=== PATIENT | male | born 1935 | race Caucasian/White ===

== ENCOUNTER → 2020-01-07 | Outpatient (CLI) | payer OTHER ==
[~2020-01-07] MED LIST: AMLODIPINE BESY10 MG PO; ASA81BEC PO; CARVEDILOL25 MG PO; FLOMAX0.4 MG PO; HUMULIN 70100 UNIT/2 SUBQ; INVOKANA100 MG PO; KLOR-CON 10 ER10 MEQ PO; LIPITOR40 MG PO; MYRBETRIQ25 MG PO; RAYOS5 MG PO; TORSEMIDE20 MG PO; ZESTRIL40 MG PO
== END ==
LOC: SJCVC 12:04
PROVIDERS: ATTEND Internal Medicine Cardiovascular Disease
DX: R94.31 Abnormal electrocardiogram [ECG] [EKG] (principal); I44.7 Left bundle-branch block, unspecified; E11.51 Type 2 diabetes mellitus with diabetic peripheral angiopathy without gangrene; I50.23 Acute on chronic systolic (congestive) heart failure; I25.10 Atherosclerotic heart disease of native coronary artery without angina pectoris; I42.9 Cardiomyopathy, unspecified; E78.5 Hyperlipidemia, unspecified; R93.1 Abnormal findings on diagnostic imaging of heart and coronary circulation; R53.83 Other fatigue; R06.02 Shortness of breath; R60.9 Edema, unspecified; R60.0 Localized edema; Z79.4 Long term (current) use of insulin

== ENCOUNTER → 2020-01-13 | Outpatient (CLI) | payer OTHER ==
[~2020-01-13] VITALS: Ht 167.6 cm; Wt 98.9 kg
[2020-01-13 07:50] LABS: HEMATOCRIT 46.8 % (42.0-52.0); HEMOGLOBIN 15.8 gm/dL (14.0-18.0); MCHC 33.8 g/dL (28.0-37.0); MCV 91.7 fL (80.0-100.0); RBC 5.1 mil/uL (4.50-6.00); WBC 10.8 thou/uL (4.0-11.0)
[2020-01-13 08:02] VITALS: BP 122/52
[2020-01-13 08:02] LABS: CALCIUM 8.9 mg/dL (8.5-10.1); CREATININE 1.3 mg/dL (0.7-1.3)
--- NOTE | 2020-01-13 14:16 | NUR ---
pt voiding per urinal but also incontinent. [facility]
--- NOTE | 2020-01-13 15:46 | EKG ---
[facility] [address] ELECTROCARDIOGRAM REPORT Name: PK SOLARES Room #: REG [facility]#: [id number] Admission: 01/13/20 Attend Phys: Vasquez Chandler MD Discharge: Date of : 39 Report #: [id number] THIS REPORT FOR: cc: Kwesi Christie James L. DO Couchonnal, Luis F. 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
--- NOTE | 2020-01-14 16:32 | CATHLAB ---
[facility] [place] [address] INVASIVE PROCEDURE REPORT Name: PK SOLARES Room #: REG NANCY [facility]an[facility]#: [id number] Admission: 01/13/20 Attend Phys: aVsquez Chandler MD Discharge: Date of : 39 Report #: [id number] THIS REPORT FOR: cc: Kwesi Christie James L. DO Mancuso, Gerald M. MD [facility] ~ APPROVED REPORT Study performed: 01/13/2020 11:25:06 Patient Details Patient Status: Out-Patient Room #: The patient is a 84 year-old male Event Personnel Hima Manzanares Precision Lathe Operator, Mariza Mcfarlane RTR, SUPERVISOR BENZENE REFINING Monitor, Syeda Mcdonald RN, Raquel Gonzales Scrvalarie Procedures Performed Right and Left Heart Cath w/or w/o Coronarie [id number] RLHC Hemostasis w/ Mynx Hemostasis with Manual pressure 03959 Initial Mod Sed Same Phys/QHP Gr5y 742854 43037 Mod Sed Same Phys/QHP Ea 992052 Indication Dyspnea, Positive stress test Procedure Narrative The was infiltrated with 1% Lidocaine subcutaneous anesthesia. A 6F 23CM BRITE TIP sheath was inserted into the RFA. Coronary angiography was performed using coronary diagnostic catheters. The right coronary system was accessed and visualized with a JR4 catheter. The left coronary system was accessed and visualized with a JL4 catheter. The left ventricle was accessed and visualized with a PIGTAIL catheter. Left ventricular/Aortic Valve gradient assessed via catheter pullback. Left ventriculogram was performed in 30 degree projection. Closure device was deployed with a 6 Fr MYNXGRIP 6/7F #[id number]. Hemostasis was obtained with manual pressure following sheath removal without any complications. The patient tolerated the procedure well and there were no complications associated with the procedure. There was no hematoma. Intraoperative Conscious Sedation Sedation start time: 12:01 Case end Time: [facility] [place] [address] [place] [address] INVASIVE PROCEDURE REPORT Name: PK SOLARES Room #: [facility] Chay#: [id number] Admission: 01/13/20 Attend Phys: Vasquez Chandler, Discharge: Date of : 39 Report #: [id number] 12:47 Fentanyl 50 mcg Versed 1 mg Fluoro Time: 3.25 minutes Dose: DAP 5746.50 cGycm2 593 mGy Contrast Type and Amount: Visipaque 110 ml Hemodynamics The right atrial mean pressure is 13 mmHg. The right ventricular pressure is 55/8 mmHg. The pulmonary artery pressure is 50/21 mmHg with a mean of 33 mmHg. The mean pulmonary capillary wedge pressure is 23 mmHg. The aortic pressure is 136/56 mmHg with a mean of 88 mmHg. The left ventricular pressure is 142/15 mmHg with a mean of mmHg. The left ventricular end diastolic pressure is 21 mmHg. The cardiac output using thermo method is 4.30 L/min. The cardiac index using thermo method is 2.07 L/min/m2. Conclusion 1. Successful right heart catheterization with cardiac output by thermodilution. See above hemodynamics. #2 left main with mild ostial disease of 20% giving rise to LAD and circumflex. #3 LAD with proximal calcification mild to moderate diffuse disease no occlusive disease #4 circumflex OM with an ostial lesion of 60 to 70% filling a proximal OM branch with mild disease second OM branch with an eccentric 70 to 75% lesion filling a moderate size OM will treat this medically for now. #4 dominant right coronary artery with an eccentric 30 to 40% lesion mid vessel lesion of 50 to 60% calcified giving rise to PDA DILEEP. Tortuous system. Not occlusive. #5 normal left ventricular size and LV function lower limits of normal EF 50% range. Recommendations and plan: Continue aggressive risk factor modification. Diuresis indicated. We will closely follow this moderately diseased coronary system. <ELECTRONICALLY SIGNED> By: Hima Manzanares MD, FACC 01/14/20 163 163 30 Hima Manzanares MD, FACC /INF
== END | disposition home or self-care (01) ==
LOC: CATH 06:35
PROVIDERS: ATTEND Nuclear Medicine Nuclear Cardiology
DX: R94.39 Abnormal result of other cardiovascular function study (principal); I25.10 Atherosclerotic heart disease of native coronary artery without angina pectoris; I70.213 Atherosclerosis of native arteries of extremities with intermittent claudication, bilateral legs; I70.1 Atherosclerosis of renal artery; K55.1 Chronic vascular disorders of intestine; I15.0 Renovascular hypertension; I11.0 Hypertensive heart disease with heart failure; I50.9 Heart failure, unspecified; I42.9 Cardiomyopathy, unspecified; E11.9 Type 2 diabetes mellitus without complications; E78.5 Hyperlipidemia, unspecified; N40.0 Benign prostatic hyperplasia without lower urinary tract symptoms; Z98.890 Other specified postprocedural states; Z79.4 Long term (current) use of insulin; Z79.899 Other long term (current) drug therapy; Z87.891 Personal history of nicotine dependence

== ENCOUNTER → 2020-07-11 | Outpatient (CLI) | payer OTHER | LOC: SJCVCIMAG 04-27 08:23 | PROVIDERS: ATTEND Internal Medicine Cardiovascular Disease | DX: I65.23 Occlusion and stenosis of bilateral carotid arteries (principal); I73.9 Peripheral vascular disease, unspecified; E11.00 Type 2 diabetes mellitus with hyperosmolarity without nonketotic hyperglycemic-hyperosmolar coma (NKHHC); Z87.891 Personal history of nicotine dependence; Z95.828 Presence of other vascular implants and grafts ==